=== PATIENT | female | born 1950 | race African-American/Black ===

== ENCOUNTER 2018-08-26 11:33 | Outpatient (CLI) | payer MEDICARE | END 2018-08-26 11:34 | disposition home or self-care (01) | LOC: BICMAMMO 11:33 | PROVIDERS: ATTEND Nurse Practitioner Family | DX: Z12.31 Encounter for screening mammogram for malignant neoplasm of breast (principal) | CPT/HCPCS: 77063; 77067 ==

== ENCOUNTER 2019-08-29 11:15 | Outpatient (CLI) | payer MEDICARE ==
--- NOTE | 2019-08-29 14:04 | MMO ---
Bilateral MAMMO Bilat Screen [facility]. CLINICAL HISTORY: Patient is 69 years old and is seen for screening. The patient has no personal history of cancer. VIEWS: The views performed were: bilateral craniocaudal with tomosynthesis and bilateral mediolateral oblique with tomosynthesis. FILMS COMPARED: The present examination has been compared to prior imaging studies performed at [facility] on 01/31/2013, 05/26/2017 and 08/26/2018. This study has been interpreted with the assistance of computer-aided detection. MAMMOGRAM FINDINGS: The breasts are heterogeneously dense, which could obscure a lesion on mammography. There are no suspicious masses, suspicious calcifications, or new areas of architectural distortion. IMPRESSION: THERE IS NO MAMMOGRAPHIC EVIDENCE OF MALIGNANCY. A ROUTINE FOLLOW-UP MAMMOGRAM IN 1 YEAR IS RECOMMENDED. THE RESULTS OF THIS EXAM WERE SENT TO THE PATIENT. ACR BI-RADS Category 1 - Negative MAMMOGRAPHY NOTE: 1. A negative mammogram report should not delay a biopsy if a dominant of clinically suspicious mass is present. 2. Approximately 10% to 15% of breast cancers are not detected by mammography. 3. Adenosis and dense breasts may obscure an underlying neoplasm. Reported by: PILI LIZ MD Electonically Signed: [id number]
== END 2019-08-29 11:16 | disposition home or self-care (01) ==
LOC: BICMAMMO 11:15
PROVIDERS: ATTEND Nurse Practitioner Family
DX: Z12.31 Encounter for screening mammogram for malignant neoplasm of breast (principal)
CPT/HCPCS: 77063; 77067

== ENCOUNTER 2020-09-11 13:03 | Outpatient (CLI) | payer MEDICARE ==
--- NOTE | 2020-09-11 13:46 | MMO ---
Bilateral MAMMO Bilat Screen [facility]. CLINICAL HISTORY: Patient is 70 years old and is seen for screening. The patient has no family history of breast cancer. The patient has no personal history of cancer. VIEWS: The views performed were: bilateral craniocaudal with tomosynthesis and bilateral mediolateral oblique with tomosynthesis. FILMS COMPARED: The present examination has been compared to prior imaging studies performed at [facility] on 01/31/2013, 05/26/2017, 08/26/2018 and 08/29/2019. This study has been interpreted with the assistance of computer-aided detection. MAMMOGRAM FINDINGS: The breasts are heterogeneously dense, which could obscure a lesion on mammography. There are no suspicious masses, suspicious calcifications, or new areas of architectural distortion. IMPRESSION: THERE IS NO MAMMOGRAPHIC EVIDENCE OF MALIGNANCY. A ROUTINE FOLLOW-UP MAMMOGRAM IN 1 YEAR IS RECOMMENDED. THE RESULTS OF THIS EXAM WERE SENT TO THE PATIENT. ACR BI-RADS Category 1 - Negative MAMMOGRAPHY NOTE: 1. A negative mammogram report should not delay a biopsy if a dominant of clinically suspicious mass is present. 2. Approximately 10% to 15% of breast cancers are not detected by mammography. 3. Adenosis and dense breasts may obscure an underlying neoplasm. Reported by: STEFANIE RILEY MD Electonically Signed: [id number]
== END 2020-09-11 13:04 | disposition home or self-care (01) ==
LOC: BICMAMMO 13:03
PROVIDERS: ATTEND Nurse Practitioner Family
DX: Z12.31 Encounter for screening mammogram for malignant neoplasm of breast (principal)
CPT/HCPCS: 77063; 77067

== ENCOUNTER 2021-10-14 08:58 | Outpatient (CLI) | payer MEDICARE | END 2021-10-14 08:59 | disposition home or self-care (01) | LOC: BICMAMMO 08:58 | PROVIDERS: ATTEND Nurse Practitioner Family | DX: Z12.31 Encounter for screening mammogram for malignant neoplasm of breast (principal) | CPT/HCPCS: 77063; 77067 ==

== ENCOUNTER 2023-01-18 09:12 | Emergency (ER) | payer OTHER ==
[2023-01-18] MEDS ORDERED: Ketorolac Tromethamine 30 MG/ML VIAL ONE (10:30)
[2023-01-18] MEDS ORDERED: predniSONE 20 MG TAB ONE (10:30)
[2023-01-18] MEDS ORDERED: HYDROcodone/Acetaminophen 5/325 mg Tablet ONE (10:30)
== END 2023-01-18 10:40 | disposition home or self-care (01) ==
LOC: ERS 09:12
DX: M16.11 Unilateral primary osteoarthritis, right hip (principal); M54.31 Sciatica, right side; E78.00 Pure hypercholesterolemia, unspecified; I10 Essential (primary) hypertension; F17.210 Nicotine dependence, cigarettes, uncomplicated; Z79.82 Long term (current) use of aspirin; Z79.899 Other long term (current) drug therapy
CPT/HCPCS: 96372; J1885; J7512

== ENCOUNTER 2023-01-21 10:32 | Outpatient (CLI) | payer OTHER | END 2023-01-21 10:33 | disposition home or self-care (01) | LOC: BICMAMMO 10:32 | PROVIDERS: ATTEND Internal Medicine | DX: Z12.31 Encounter for screening mammogram for malignant neoplasm of breast (principal) | CPT/HCPCS: 77063; 77067 ==

== ENCOUNTER 2023-04-17 07:32 | Outpatient (CLI) | payer OTHER | END 2023-04-17 07:33 | disposition home or self-care (01) | LOC: RAD 07:32 | PROVIDERS: ATTEND Internal Medicine | DX: M25.551 Pain in right hip (principal); M16.11 Unilateral primary osteoarthritis, right hip ==

== ENCOUNTER 2023-07-30 08:48 | Emergency (ER) | payer OTHER ==
[2023-07-30] MEDS ORDERED: Ketorolac Tromethamine 30 MG/ML VIAL ONE ×2 (10:14→10:18)
[2023-07-30] MEDS ORDERED: Dexamethasone 10 MG/ML VIAL ONE (10:14)
[2023-07-30] MEDS ORDERED: fentaNYL 50 mcg/mL 1 mL Vial ONE (10:14)
== END 2023-07-30 10:45 | disposition home or self-care (01) ==
LOC: ERS 08:48
DX: M16.11 Unilateral primary osteoarthritis, right hip (principal); E78.00 Pure hypercholesterolemia, unspecified; I10 Essential (primary) hypertension; F17.210 Nicotine dependence, cigarettes, uncomplicated; Z79.899 Other long term (current) drug therapy; Z79.82 Long term (current) use of aspirin
CPT/HCPCS: 96372; J1100; J1885; J3010

== ENCOUNTER 2023-10-14 14:00 | Outpatient (CLI) | payer OTHER ==
[2023-10-14 15:24] LABS: #Basophils 0.1 10x3/uL (0.0-0.2); #Eosinphils 0.1 10x3/uL (0.0-0.5); #Neutrophils 3.5 10x3/uL (1.5-8.4); %Basophils 0.8 % (0.0-2.0); %Eosinophils 1.8 % (0.0-6.0); %Lymphocytes 40.4 % (18.0-47.0); %Monocytes 12.4 % (0.0-10.0); %Neutrophils 44.5 % (40.0-75.0); Hematocrit 35.8 % (34.9-44.5); Hemoglobin 11.8 g/dL (12.0-15.5); Mean Corpuscular Hemoglobin 28.6 pg (27.0-33.0); Mean Corpuscular Volume 86.7 fl (81.6-98.3); Platelet Count 227 10x3/uL (150-450); RBC Distribution Width 14.3 % (11.5-14.5); Red Blood Cell (RBC) Count 4.13 10x6/uL (3.90-5.03); White Blood Cell (WBC) Count 7.9 10x3/uL (3.5-10.5)
[2023-10-14 15:38] LABS: Anion Gap 17 mmol/L (10-20); BUN (Urea Nitrogen) 23 mg/dL (9.8-20.1); Calc. Creatinine Clearance 0 mL/min (70-130); Calcium 9.5 mg/dL (7.8-10.44); Carbon Dioxide 20 mmol/L (23-31); Chloride 107 mmol/L (98-107); Estimated GFR 64; Glucose 109 mg/dL (83-110); Sodium 140 mmol/L (136-145)
[2023-10-14 15:42] LABS: Prothrombin Time 10.9 sec (9.5-12.1)
== END 2023-10-14 14:01 | disposition home or self-care (01) ==
LOC: LABBT 14:00
PROVIDERS: ATTEND Orthopaedic Surgery
DX: Z01.818 Encounter for other preprocedural examination (principal); M16.11 Unilateral primary osteoarthritis, right hip
CPT/HCPCS: 80048; 85025; 85610; 87081; 93005; 93010

== ENCOUNTER 2023-10-20 06:51 | Observation (INO) | payer OTHER ==
[2023-10-20] MEDS ORDERED: Sodium Chloride 0.9% 100 ML ONE (07:50)
[2023-10-20] MEDS ORDERED: Tranexamic Acid 1,000 MG/10 ML VIAL ONE (07:50)
[2023-10-20] MEDS ORDERED: Vancomycin 1 GM/200 ML (FROZEN) BAG ONE (07:51)
[2023-10-20] MEDS ORDERED: HYDROcodone/Acetaminophen 5/325 mg Tablet PO PRN (09:15)
[2023-10-20] MEDS ORDERED: Zolpidem Tartrate 5 MG TAB PO PRN (09:15)
[2023-10-20] MEDS ORDERED: traMADol HCl 50 MG TAB PO PRN ×2 (09:15)
[2023-10-20] MEDS ORDERED: Moisturizing Cream (Eucerin) 113 GM JAR TOP PRN (09:15)
[2023-10-20] MEDS ORDERED: Promethazine HCl 25 MG SUPP PR PRN (09:15)
[2023-10-20] MEDS ORDERED: Naloxone HCl 0.4 mg/ml Vial IV PRN (09:15)
[2023-10-20] MEDS ORDERED: diphenhydrAMINE 50 MG/ML VIAL IVP PRN (09:15)
[2023-10-20] MEDS ORDERED: Naloxone HCl 0.4 mg/ml Vial IVP PRN (09:15)
[2023-10-20] MEDS ORDERED: diphenhydrAMINE 50 MG/ML VIAL IM PRN (09:15)
[2023-10-20] MEDS ORDERED: FENTANYL 500 MCG/10 ML VIAL 500 MCG, Bupivacaine 0.75% 10 ML in Sodium Chloride 0.9% 80 ML EPIDURAL SCH (09:15)
[2023-10-20] MEDS ORDERED: Promethazine HCl 25 MG/ML VIAL IM PRN (09:15)
[2023-10-20] MEDS ORDERED: diphenhydrAMINE 25 MG CAP PO PRN (09:15)
[2023-10-20] MEDS ORDERED: Ondansetron PF 4 MG/2 ML Vial IVP PRN (09:15)
[2023-10-20] MEDS ORDERED: LevoFLOXacin D5W 500 mg (100 mL) BAG ONE (09:24)
[2023-10-20] MEDS ORDERED: Clindamycin/D5W 900 mg/50 ml Premix Bag ONE (09:41)
[2023-10-20] MEDS ORDERED: Fentanyl 250 MCG/5 ML VIAL ONE (09:41)
[2023-10-20] MEDS ORDERED: Lidocaine 1.5% w/Epi 1:200K 30 ML VIAL (Epid Use) ONE (10:03)
[2023-10-20] MEDS ORDERED: NEOSTIGMINE 3 MG/3 ML SYR 3 MG/3 ML SYRINGE ONE (10:03)
[2023-10-20] MEDS ORDERED: Rocuronium Bromide 10 MG/ML (10ML VIAL) ONE (10:03)
[2023-10-20] MEDS ORDERED: Calcium Chloride 1 GM/10 ML Abboject SYRINGE ONE (10:30)
[2023-10-20] MEDS ORDERED: PHENYLEPHRINE-NS 100 MCG/ML 10 ML SYRINGE ONE (10:30)
[2023-10-20] MEDS ORDERED: Dexamethasone 4 mg/ml Vial ONE (10:57)
[2023-10-20] MEDS ORDERED: Ondansetron PF 4 MG/2 ML Vial ONE (10:57)
[2023-10-20] MEDS ORDERED: Glycopyrrolate 0.2 MG/ML 5 ML SYRINGE ONE (10:59)
[2023-10-20] MEDS ORDERED: Acetaminophen 325 MG TAB PO PRN (11:41)
[2023-10-20] MEDS ORDERED: Ketorolac Tromethamine 30 MG (1 mL) VIAL ONE (14:04)
[2023-10-20] MEDS: Ketorolac Tromethamine 30 MG (1 mL) VIAL IVP SCH (15:08)
[2023-10-20] MEDS: Clindamycin/D5W 900 MG in Premix 1 BAG IVPB SCH (15:12)
[2023-10-20 15:30] VITALS: BMI 25.7
[2023-10-20] MEDS: Aspirin 81 mg Enteric Coated Tablet PO SCH (22:28)
[2023-10-21 04:51] LABS: Hematocrit 28.3 % (36.0-47.0); Hemoglobin 9.1 g/dL (12.0-16.0); Mean Corpuscular HGB CONC 32.2 g/dL (32.0-36.0); Mean Corpuscular Volume 90.1 fl (78.0-98.0); Mean Platelet Volume 12.1 fL (7.4-10.4); Platelet Count 175 10x3/uL (130-400); RBC Distribution Width 14.5 % (11.5-14.5); Red Blood Cell (RBC) Count 3.14 mill/uL (4.20-5.40); White Blood Cell (WBC) Count 10.4 10x3/uL (4.8-10.8)
[2023-10-21] MEDS: Ferrous Gluconate 324 MG TAB PO SCH (10:19)
[2023-10-21] MEDS: Senokot S 8.6-50 MG TAB PO SCH (10:20)
[2023-10-21] MEDS: HYDROcodone/Acetaminophen 5/325 mg Tablet PO PRN (10:24)
[2023-10-21] MEDS: Multivitamin W/ Minerals 1 TAB PO SCH (10:26)
[2023-10-21 12:08] VITALS: BP 114/65; TEMP 98.3
== END 2023-10-21 15:44 | disposition home or self-care (01) ==
LOC: SDC 06:51 → SURG B 07:00
PROVIDERS: ADMIT Orthopaedic Surgery; ATTEND Orthopaedic Surgery
PROC: 0SR90JZ Replacement of Right Hip Joint with Synthetic Substitute, Open Approach (ICD-10-PCS; principal; 2023-10-20)
DX: M16.11 Unilateral primary osteoarthritis, right hip (principal); M87.9 Osteonecrosis, unspecified; F17.200 Nicotine dependence, unspecified, uncomplicated; I10 Essential (primary) hypertension; M54.16 Radiculopathy, lumbar region; E78.00 Pure hypercholesterolemia, unspecified; Z79.899 Other long term (current) drug therapy; Z79.84 Long term (current) use of oral hypoglycemic drugs; Z88.1 Allergy status to other antibiotic agents; Z88.8 Allergy status to other drugs, medicaments and biological substances
CPT/HCPCS: 27130; 72170; 73501; 85027; 96365; 96366; 96375; 96376; 97110 ×2; 97116 ×2; 97530 ×2; 97535; C1776; G0378 ×2; J3010; J3370; 36415; J1100; J1885; J1956; J2001; J2405; J3490

== ENCOUNTER 2024-06-10 08:05 | Outpatient (CLI) | payer OTHER | END 2024-06-10 08:06 | disposition home or self-care (01) | LOC: BICRAD 08:05 | PROVIDERS: ATTEND Nurse Practitioner Family | DX: M25.551 Pain in right hip (principal); M25.552 Pain in left hip; M47.816 Spondylosis without myelopathy or radiculopathy, lumbar region ==

== ENCOUNTER 2024-06-30 09:35 | Outpatient (CLI) | payer OTHER | END 2024-06-30 09:36 | disposition home or self-care (01) | LOC: BICMAMMO 09:35 | PROVIDERS: ATTEND Nurse Practitioner Family | DX: Z13.820 Encounter for screening for osteoporosis (principal); M85.89 Other specified disorders of bone density and structure, multiple sites; Z78.0 Asymptomatic menopausal state | CPT/HCPCS: 77080 ==

== ENCOUNTER 2024-08-15 08:16 | Outpatient (CLI) | payer OTHER | END 2024-08-15 08:17 | disposition home or self-care (01) | LOC: MRI 08:16 | PROVIDERS: ATTEND Neurological Surgery | DX: M48.061 Spinal stenosis, lumbar region without neurogenic claudication (principal); M47.816 Spondylosis without myelopathy or radiculopathy, lumbar region; M47.817 Spondylosis without myelopathy or radiculopathy, lumbosacral region; M47.815 Spondylosis without myelopathy or radiculopathy, thoracolumbar region | CPT/HCPCS: 72148 ==

== ENCOUNTER 2024-09-13 09:25 | Emergency (ER) | payer OTHER ==
[2024-09-13] MEDS ORDERED: Ibuprofen 200 MG TAB ONE (10:25)
== END 2024-09-13 12:12 | disposition home or self-care (01) ==
LOC: ERS 09:25
DX: S09.90XA Unspecified injury of head, initial encounter (principal); M79.601 Pain in right arm; M79.602 Pain in left arm; M79.605 Pain in left leg; I10 Essential (primary) hypertension; E78.5 Hyperlipidemia, unspecified; E11.9 Type 2 diabetes mellitus without complications; F17.210 Nicotine dependence, cigarettes, uncomplicated; Z79.84 Long term (current) use of oral hypoglycemic drugs; Z79.899 Other long term (current) drug therapy; W01.0XXA Fall on same level from slipping, tripping and stumbling without subsequent striking against object, initial encounter
CPT/HCPCS: 70450; 72125